=== PATIENT | male | born 1960 | race African-American/Black ===

== ENCOUNTER 2019-08-31 21:40 | Emergency (ER) | payer MEDICAID ==
[~2019-08-31] VITALS: Ht 182.9 cm; Wt 290.0 kg
[2019-08-31] MEDS ORDERED: haloperidol lactate 5mg/ml inj IM ONE (22:20)
[2019-08-31] MEDS ORDERED: diphenhydrAMINE 50 mg/ml inj IM ONE (22:20)
[2019-08-31] MEDS ORDERED: LORazepam 2 mg/ml vial IM ONE (22:20)
[2019-08-31] MEDS ORDERED: bacitracin 15gm ointment TP ONE (22:35)
[2019-08-31] MEDS ORDERED: LIDOcaine 1% W/epiNEPHrine 1:200,000 10ml vial IJ ONE (22:35)
[2019-08-31] MEDS ORDERED: TETanus/Pertussis (Acell)/Diphther VAC/PF (Tdap-Adult) 0.5ml syringe IMVAC ONE (22:35)
[2019-09-01 00:20] VITALS: BP 175/100
== END 2019-09-01 00:25 ==
LOC: ER 21:41
DX: S01.112A Laceration without foreign body of left eyelid and periocular area, initial encounter (principal); Z72.89 Other problems related to lifestyle; Y04.8XXA Assault by other bodily force, initial encounter; Y93.89 Activity, other specified; Y92.89 Other specified places as the place of occurrence of the external cause; Y99.8 Other external cause status
CPT/HCPCS: 12014; 70450; 70486; 90471; 90715; 96372; 99285; J1200; J1630; J2060